=== PATIENT | male | born 1955 | race Caucasian/White ===

== ENCOUNTER 2021-01-11 12:52 | Inpatient (IN) | payer MEDICARE ==
[~2021-01-11] VITALS: Ht 167.6 cm; Wt 81.3 kg
[~2021-01-11 12:52] MED LIST: ASPI-482 PO; ATOR40TA PO; INSU100C4 SQ; INSU100V13 SQ; LISI40TA6 PO; METF1000 PO; RANI300T3 PO
--- NOTE | 2021-01-11 13:20 | PHYS DOC ---
Past History Past Medical History: Asthma, CAD, Diabetes, High Cholesterol, Hypertension, Other Additional Past Medical Histor: enlarged; kidney cancer prostate (NATASHA HARDIN APRN) Past Surgical History: Tonsillectomy, Other Additional Past Surgical Histo: partial kidney removal (NATASHA HARDIN APRN) Alcohol Use: None Drug Use: None (NATASHA HARDIN APRN) Adult General Chief Complaint Chief Complaint: ABDOMINAL PAIN HPI HPI Patient is a 65-year-old male presents emergency department complaining of 6 days of lower left and right abdominal pain with nausea vomiting and diarrhea. Patient reports fevers every day for the past 6 days at home stating his maximum fever was 99.0 oral temp. Patient also complains of low back pain. Patient reports his last diarrhea spell was 2 days ago, last vomiting spell was yesterday. Patient reports that he now feels weak. Patient states he was seen at urgent care yesterday and was sent home after their work-up to include a negative COVID-19 virus test and a negative rapid flu test. Patient reports he had his first COVID-19 virus vaccination 5 weeks ago, was denied his second vaccination related to this current illness. Patient states he has a surgical history of partial left kidney removal 2 years ago. States he has had no kidney problems since. Patient reports he is a type II diabetic, takes medications for hypertension and elevated cholesterol, takes a medication for enlarged prostate. Patient denies chest pain, chest congestion, headaches, neck pain, sore throat, nasal congestion or upper airway congestion. Patient denies rashes to the skin, denies swelling of his extremities, denies headaches, denies visual disturbances. Patient states he is not homicidal or suicidal. Patient denies anyone else in his home feeling the same way as he, patient denies recent travel. Patient denies contact with any known COVID-19 virus sources. (NATASHA HARDIN APRN) Review of Systems Review of Systems 14 body systems of review of systems have been reviewed. See HPI for pertinent positives and negative responses, otherwise all other systems are negative, nonpertinent or noncontributory. (NATASHA HARDIN APRN) Allergies Allergies Allergies Coded Allergies Type Severity Reaction Last Updated Verified Penicillins Allergy Unknown Anaphylaxis 01/11/21 Yes (NATASHA HARDIN APRN) Physical Exam Physical Exam Constitutional: Well developed, well nourished, mild distress, non-toxic appearance. 65-year-old male holding lower abdomen and writhing around in bed. HENT: Normocephalic, atraumatic, bilateral external ears normal, oropharynx moist, no oral exudates, nose normal. No lymphadenopathy of the head or neck appreciated, oropharynx moist, no infectious process appreciated, bilateral TMs within normal limits. Eyes: PERRLA, EOMI, conjunctiva normal, no discharge. Neck: Normal range of motion, no tenderness, supple, no stridor. No midline C- spine spinal tenderness, no nuchal rigidity, no meningismus signs. Cardiovascular:Heart rate regular rhythm, murmur appreciated per auscultation, patient states he has a history of a murmur. Lungs & Thorax: Bilateral breath sounds clear to auscultation all lung jerze. Abdomen: Bowel sounds normal, soft, no masses, no pulsatile masses. Tenderness to palpation left lower and right lower quadrants, no rebound tenderness, no McBurney's point tenderness, no Locke sign. No areas of ecchymosis appreciated. Skin: Warm, dry, no erythema, no rash. Back: No tenderness tenderness along midline spinal processes, no left or right CVA tenderness, lower left and right lumbar area pain to palpation. Extremities: No tenderness, no cyanosis, no clubbing, ROM intact, no edema. +2/4 pulses, distal cap refill less than 2 seconds. Neurologic: Alert and oriented X 3, normal motor function, normal sensory function, no focal deficits noted. Psychologic: Affect normal, judgement normal, mood normal. (NATASHA HARDIN APRN) Current Patient Data Vital Signs Vital Signs Date Time Temp Pulse Resp B/P (MAP) Pulse Ox O2 Delivery O2 Flow Rate FiO2 01/11/21 13:03 97.6 88 13 124/72 (89) 94 Room Air Lab Results Laboratory Tests Test 01/11/21 13:54 01/11/21 15:05 01/11/21 16:50 White Blood Count 23.9 x10^3/uL Red Blood Count 4.03 x10^6/uL Hemoglobin 12.0 g/dL Hematocrit 36.5 % Mean Corpuscular Volume 91 fL Mean Corpuscular Hemoglobin 30 pg Mean Corpuscular Hemoglobin Concent 33 g/dL Red Cell Distribution Width 14.1 % Platelet Count 375 x10^3/uL Neutrophils (%) (Auto) 89 % Lymphocytes (%) (Auto) 3 % Monocytes (%) (Auto) 7 % Eosinophils (%) (Auto) 0 % Basophils (%) (Auto) 1 % Neutrophils # (Auto) 21.2 x10^3uL Lymphocytes # (Auto) 0.8 x10^3/uL Monocytes # (Auto) 1.7 x10^3/uL Eosinophils # (Auto) 0.1 x10^3/uL Basophils # (Auto) 0.1 x10^3/uL Segmented Neutrophils % 81 % Band Neutrophils % 5 % Lymphocytes % 5 % Monocytes % 9 % Platelet Estimate Adequate Sodium Level 131 mmol/L Potassium Level 3.2 mmol/L Chloride Level 96 mmol/L Carbon Dioxide Level 26 mmol/L Anion Gap 9 Blood Urea Nitrogen 33 mg/dL Creatinine 1.4 mg/dL Estimated GFR (Cockcroft-Gault) 50.5 BUN/Creatinine Ratio 24 Glucose Level 185 mg/dL Calcium Level 8.6 mg/dL Total Bilirubin 0.5 mg/dL Aspartate Amino Transf (AST/SGOT) 36 U/L Alanine Aminotransferase (ALT/SGPT) 44 U/L Alkaline Phosphatase 104 U/L Total Protein 6.5 g/dL Albumin 3.7 g/dL Albumin/Globulin Ratio 1.3 Lactic Acid Level 1.9 mmol/L Urine Collection Type Void Urine Color Yellow Urine Clarity Hazy Urine pH 5.5 Urine Specific [place] 1.015 Urine Protein 100 mg/dl Urine Glucose (UA) Neg mg/dL Urine Ketones (Stick) Neg mg/dL Urine Blood Small Urine Nitrite Neg Urine Bilirubin Neg Urine Urobilinogen Dipstick 0.2 mg/dL Urine Leukocyte Esterase Small Urine RBC 1-2 /HPF Urine WBC >40 /HPF Urine Squamous Epithelial Cells Occ /LPF Urine Bacteria Mod /HPF Current Medications Medications (Trade) Dose Ordered Sig/Ayala Route PRN Reason Start Time Stop Time Status Last Admin Dose Admin Sodium Chloride 1,000 ml @ 1,000 mls/hr 1X ONCE IV 01/11/21 13:30 01/11/21 14:29 DC 01/11/21 14:06 Sodium Chloride 1,000 ml @ 1,000 mls/hr 1X ONCE IV 01/11/21 14:45 01/11/21 15:44 DC 01/11/21 14:53 Ondansetron HCl (Zofran) 4 mg 1X ONCE IVP 01/11/21 14:45 01/11/21 14:51 DC 01/11/21 14:52 Potassium Chloride (Klor-Con) 40 meq 1X ONCE PO 01/11/21 14:45 01/11/21 14:51 DC 01/11/21 14:53 Iohexol (Omnipaque 300 Mg/ml) 75 ml 1X ONCE IV 01/11/21 15:00 01/11/21 15:01 DC Info (Do NOT chart on this entry -- for MONITORING) 1 each PRN DAILY PRN MC SEE COMMENTS 01/11/21 15:00 01/13/21 14:59 Fentanyl Citrate (Fentanyl 2ml Vial) 75 mcg 1X ONCE IVP 01/11/21 16:30 01/11/21 16:37 DC 01/11/21 16:36 Sodium Chloride 1,000 ml @ 125 mls/hr 1X ONCE IV 01/11/21 17:15 01/12/21 01:14 UNV Levofloxacin/ Dextrose (Levaquin Per Pharmacy) 1 each PRN DAILY PRN MC SEE COMMENTS 01/11/21 17:15 UNV Metronidazole 100 ml @ 100 mls/hr 1X ONCE IV 01/11/21 17:15 01/11/21 18:14 UNV Ondansetron HCl (Zofran) 4 mg PRN Q4HRS PRN IVP NAUSEA/VOMITING 01/11/21 17:15 01/12/21 17:14 UNV (NATASHA HARDIN APRN) EKG EKG []PATIENT: BINH ONEIL AACCOUNT: [id number]#: [id number] : 1955 LOCATION: ER AGE: 65 SEX: M EXAM STATUS: REG ER ORD. PHYSICIAN: NATASHA HARDIN APRN REASON: ABDOMEN PAIN PROCEDURE: CT ABDOMEN PELVIS WO CONTRAST Exam: CT of abdomen and pelvis without contrast INDICATION: Abdominal pain TECHNIQUE: Sequential axial images through the abdomen and pelvis obtained without IV contrast. Sagittal and coronal reformatted images were reconstructed from the axial data and reviewed. Comparisons: None FINDINGS: Heart size is normal. No pericardial effusion. There is linear bandlike opacities noted at the lung bases. No pleural effusion. Evaluation of solid organs limited secondary to noncontrast technique. Liver, spleen, gallbladder and adrenals are unremarkable. There is diffuse inflammatory changes surrounding the pancreas no focal fluid collection is identified. Somewhat hyperdense ascites is noted surrounding the pancreas. No perinephric inflammation or hydronephrosis. There is postoperative changes at the upper pole of the left kidney with some adjacent thickening. Bladder is partially distended and not well evaluated. Prostate is not enlarged. Large and small bowel are unremarkable. Appendix is normal. No free intra- abdominal air or fluid. No obstruction. Abdominal aorta has a normal course and caliber. No enlarged intra-abdominal lymph nodes are identified. No suspicious osseous lesions or acute fractures. IMPRESSION: 1. Extensive inflammatory changes surrounding the pancreas favored represent pancreatitis. There is some hyperdense surrounding ascites which may relate to hemorrhagic products. Hemorrhagic pancreatitis is possible. 2. Postoperative changes of partial nephrectomy at the upper pole of the left kidney with questionable nodular thickening adjacent to the suture. Renal protocol CT is recommended to better assess. Exposure: One or more of the following in the visualized dose reduction techniques were utilized for this examination: 1. Automated exposure control 2. Adjustment of the MA and/or KV according to patient size 3. Use of iterative of reconstructive technique Electronically signed by: Ester Dhillon MD (01/11/2021 4:09 PM) [facility] (NATASHA HARDIN APRN) Radiology/Procedures Radiology/Procedures [] (NATASHA HARDIN APRN) Heart Score C/O Chest Pain: No Risk Factors: Risk Factors: DM, Current or recent (<one month) smoker, HTN, HLP, family history of CAD, obesity. Risk Scores: Risk Factors: DM, Current or recent (<one month) smoker, HTN, HLP, family history of CAD, obesity. (NATASHA HARDIN APRN) Course & Med Decision Making Course & Med Decision Making Pertinent Labs and Imaging studies reviewed. (See chart for details) 65-year-old male, vital signs reviewed, presents to the emergency department concern of abdominal pain for the past 6 days. Patient's physical examination concerning for possible acute surgical abdomen versus diverticulitis. ED work- up was initiated. Patient's labs concerning with leukocytosis, WBC equals 23,900. Patient's lactic acid was unremarkable. Due to patient's poor vascular access, a CT abdomen pelvis with IV contrast was not performed, and lieu of this a CT abdomen pelvis without contrast was performed in the ED today. CT abdomen pelvis read by house radiologist interpretation concerning for pancreatitis. Patient did not present with upper quadrant abdominal pain, a lipase was ordered at this time. Called and discussed patient case with inpatient physician Dr. Bowles who agreed to admit patient to the medical surgical unit at [facility] with a diagnosis of abdominal pain, leukocytosis, abnormal abdominal CT with the information he received from md. Dr. Bowles recommended patient be started on Zosyn IV, and normal saline IV at the rate of 125/h. Dr. Bowles has assumed patient care at this time. Reviewed patient's allergies, patient does have allergy to penicillin, discussed with [facility] pharmacist, was recommended to start on IV Flagyl and IV Levaquin and lieu of Zosyn IV (NATASHA HARDIN APRN) Course & Med Decision Making I oversaw care of patient and reviewed case with OIL AGENT at length. I personally saw and evaluated patient complaing of diffuse abdominal pain without surgical abdomen findings. I stressed need for admission with OIL AGENT and advised he discuss case with hospitalist to review need for [facility] admission. I agree with note and plan of care as stated. Electronically signed, David Anna DO This patient required critical care. Due to the fact that the patient required a significant amount of one on one physician patient contact time, ordering and review of studies, arranging urgent treatment with development of a management plan, evaluation of patients response to treatment with frequent reassessments, and discussions with other providers this patient required critical care time of 32 mins Critical care time was indicated due to the inherent instability and/or potential for instability in this patient. The critical care time that is allocated to this patient is above and beyond any time spent on any other billable procedures performed on this patient. (DAVID ANNA DO) Dragon Disclaimer Dragon Disclaimer This electronic medical record was generated, in whole or in part, using a voice recognition dictation system. (NATASHA HARDIN APRN) Departure Departure: Impression: Primary Impression: Abdominal pain Additional Impressions: Abnormal abdominal CT scan Leukocytosis Disposition: 09 ADMITTED INPT THIS HOSP (Admit to Dr. Bowles to [facility] unit diagnosis abdominal pain, abnormal abdominal CT, leukocytosis) Admitting Physician: Eliu Bowles (NATASHA HARDIN APRN) Condition: STABLE Referrals: RUSS SMILEY MD (PCP) Problem Qualifiers Primary Impression: Abdominal pain Abdominal location: unspecified location Qualified Codes: R10.9 - Unspecified abdominal pain Additional Impressions: Leukocytosis Leukocytosis type: unspecified Qualified Codes: D72.829 - Elevated white blood cell count, unspecified NATASHA HARDIN APRN Jan 11, 2021 13:20 DAVID ANNA DO Jan 11, 2021 23:00
[2021-01-11] MEDS ORDERED: IV NORMAL SALINE 1,000ML 1,000 ML IV ONE ×3 (13:30→17:15)
[2021-01-11 14:18] LABS: BASO # 0.1 x10^3/uL (0.0-0.2); BASO % 1 % (0-3); EOS # 0.1 x10^3/uL (0.0-0.7); EOS % 0 % (0-3); HEMATOCRIT 36.5 % (39.0-53.0); LYMPH # 0.8 x10^3/uL (1.0-4.8); LYMPH % 3 % (24-48); MEAN CORPUSCULAR HEMOGLOBIN 30 pg (25-35); MEAN CORPUSCULAR HGB CONC 33 g/dL (31-37); MEAN CORPUSCULAR VOLUME 91 fL (79-100); MONO # 1.7 x10^3/uL (0.0-1.1); MONO % 7 % (0-9); NEUT # 21.2 x10^3uL (1.8-7.7); NEUT % 89 % (31-73); PLATELET COUNT 375 x10^3/uL (140-400); RED BLOOD COUNT 4.03 x10^6/uL (4.30-5.70); RED CELL DISTRIBUTION WIDTH 14.1 % (11.5-14.5); WHITE BLOOD COUNT 23.9 x10^3/uL (4.0-11.0)
[2021-01-11 14:31] LABS: CALCIUM 8.6 mg/dL (8.5-10.1); CREATININE 1.4 mg/dL (0.7-1.3); GFR 50.5; POTASSIUM 3.2 mmol/L (3.5-5.1)
[2021-01-11] MEDS ORDERED: ONDANSETRON PF 4 MG/2 ML VIAL. IVP ONE (14:45)
[2021-01-11] MEDS ORDERED: POTASSIUM CHLORIDE 20 MEQ TABLET.ER. PO ONE (14:45)
[2021-01-11] MEDS ORDERED: IOHEXOL 300 MG/ML 75 ML VIAL. IV ONE (15:00)
[2021-01-11] MEDS ORDERED: CONTRAST GIVEN. MC PRN (15:00)
[2021-01-11 15:11] LABS: % BANDS 5 % (0-9); % LYMPHS 5 % (24-48); % MONOS 9 % (0-10); % SEGS 81 % (35-66); PLT ESTIMATE ADEQUATE (ADEQUATE)
[2021-01-11 15:12] LABS: TOTAL BILIRUBIN 0.5 mg/dL (0.2-1.0); TOTAL PROTEIN 6.5 g/dL (6.4-8.2)
[2021-01-11 15:31] LABS: ALBUMIN 3.7 g/dL (3.4-5.0); ALBUMIN/GLOBULIN RATIO 1.3 (1.0-1.7)
--- NOTE | 2021-01-11 16:11 | RAD ---
Exam: CT of abdomen and pelvis without contrast INDICATION: Abdominal pain TECHNIQUE: Sequential axial images through the abdomen and pelvis obtained without IV contrast. Sagit dinesh and coronal reformatted images were reconstructed from the axial data and reviewed. Comparisons: None FINDINGS: Heart size is normal. No pericardial effusion. There is linear bandlike opacities noted at the lung b ases. No pleural effusion. Evaluation of solid organs limited secondary to noncontrast technique. Liver, spleen, gallbladder and adrenals are unremarkable. There is diffuse inflammatory changes surrounding the pancreas no focal fluid collection is identifie d. Somewhat hyperdense ascites is noted surrounding the pancreas. No perinephric inflammation or hydronephrosis. There is postoperative changes at the upper pole of th e left kidney with some adjacent thickening. Bladder is partially distended and not well evaluated. Prostate is not enlarged. Large and small bowel are unremarkable. Appendix is normal. No free intra-abdominal air or fluid. No obstruction. Abdominal aorta has a normal course and caliber. No enlarged intra-abdominal lymph nodes are identified. No suspicious osseous lesions or acute fractures. IMPRESSION: 1. Extensive inflammatory changes surrounding the pancreas favored represent pancreatitis. There is some hyperdense surrounding ascites which may relate to hemorrhagic products. Hemorrhagic pancreatiti s is possible. 2. Postoperative changes of partial nephrectomy at the upper pole of the left kidney with questionab le nodular thickening adjacent to the suture. Renal protocol CT is recommended to better assess. Exposure: One or more of the following in the visualized dose reduction techniques were utilized for this examination: 1. Automated exposure control 2. Adjustment of the MA and/or KV according to patient size 3. Use of iterative of reconstructive technique Electronically signed by: Ester Dhillon MD (01/11/2021 4:09 PM) [facility]
[2021-01-11 17:06] LABS: BILIRUBIN,URINE NEG (NEG); CLARITY,URINE HAZY; COLOR,URINE YELLOW; GLUCOSE,URINE NEG (NEG); NITRITE,URINE NEG (NEG); UROBILINOGEN,URINE 0.2 mg/dL (0.2 mg/dL)
[2021-01-11 17:08] LABS: BACTERIA,URINE MOD /HPF (0-FEW); SQUAMOUS EPITHELIAL CELL,UR OCC /LPF; WBC,URINE >40 /HPF (0-4)
[2021-01-11] MEDS ORDERED: ONDANSETRON PF 4 MG/2 ML VIAL. IVP PRN (17:15)
[2021-01-11] MEDS ORDERED: levoFLOXacin PER PHARMACY 1 EACH. MC PRN (17:15)
[2021-01-11 19:30] VITALS: BP 159/82
--- NOTE | 2021-01-11 19:30 | NUR ---
ADMISSION: The patient, BINH ONEIL, 65 y/o, M admitted by SHARI WOODSON MD, was given written information regarding hospital policies, unit procedures and contact persons. Pt arrived to room 117 via gurney, accompanied by [facility] and ED staff. Pt here for c/o lower abdominal pain x1 week, along with N/V/D over the past couple days. Pt reports he was seen at urgent care last , was swabbed for COVID-19 and Flu A/B. All came back negative. Pt reports he was sent home with Miguel A, but has not improved. Pt received the first dose of Moderna COVID vaccine approx. 4 weeks ago, but was unable to receive his 2nd dose due to his current illness. Pt NPO. IV fluids infusing per order. PMH reviewed with pt. Pt unsure of home meds, reviewed with pt's Sandra over the phone. Discussed POC with pt and , V/U. SCD's for VTE. Pt UTD on flu vaccine. Call light in reach. Valuables were checked and logged. Left in room with pt.
[2021-01-11] MEDS ORDERED: METO50TA29 PO (20:11)
[2021-01-11] MEDS ORDERED: METF10007 PO (20:11)
[2021-01-11] MEDS ORDERED: TAMS0.4C97 PO (20:11)
[2021-01-11] MEDS ORDERED: FAMO20TA5 PO (20:11)
[2021-01-11] MEDS: IV NORMAL SALINE 1,000ML 1,000 ML IV SCH (21:45)
[2021-01-11 23:18] VITALS: BP 154/74
[2021-01-12] MEDS: IV NORMAL SALINE 1,000ML 1,000 ML IV SCH ×2 (03:52→13:45)
[2021-01-12 05:21] VITALS: BP 158/73
[2021-01-12] MEDS ORDERED: LACTOBACILLUS RHAMNOSUS GG 1 CAPSULE. PO SCH (09:00)
[2021-01-12 09:14] LABS: BASO # 0.1 x10^3/uL (0.0-0.2); BASO % 0 % (0-3); EOS % 0 % (0-3); HEMATOCRIT 34.6 % (39.0-53.0); HEMOGLOBIN 11.2 g/dL (13.0-17.5); LYMPH # 0.8 x10^3/uL (1.0-4.8); LYMPH % 3 % (24-48); MEAN CORPUSCULAR HEMOGLOBIN 29 pg (25-35); MEAN CORPUSCULAR HGB CONC 33 g/dL (31-37); MEAN CORPUSCULAR VOLUME 91 fL (79-100); MONO # 1.8 x10^3/uL (0.0-1.1); MONO % 8 % (0-9); NEUT # 21.5 x10^3uL (1.8-7.7); NEUT % 89 % (31-73); PLATELET COUNT 382 x10^3/uL (140-400); RED BLOOD COUNT 3.81 x10^6/uL (4.30-5.70); RED CELL DISTRIBUTION WIDTH 14.4 % (11.5-14.5); WHITE BLOOD COUNT 24.2 x10^3/uL (4.0-11.0)
[2021-01-12 09:25] LABS: ALBUMIN 1.6 g/dL (3.4-5.0); ALBUMIN/GLOBULIN RATIO 0.4 (1.0-1.7); CREATININE 1.1 mg/dL (0.7-1.3); GFR 66.8; POTASSIUM 3.9 mmol/L (3.5-5.1); TOTAL BILIRUBIN 0.5 mg/dL (0.2-1.0); TOTAL PROTEIN 5.5 g/dL (6.4-8.2)
[2021-01-12 11:26] VITALS: BP 169/78
[2021-01-12 15:25] VITALS: BP 158/76
[2021-01-12] MEDS ORDERED: metFORMIN 500 MG TABLET PO SCH (17:30)
--- NOTE | 2021-01-12 17:37 | SSS ---
ADMIT DATE: HISTORY OF PRESENT ILLNESS: The patient is a 65-year-old male patient who presented to the Emergency Room with a complaint of pain that started about roughly 9 days ago, specifically Monday with abdominal pain that was mostly diffuse, radiating, going through and through to the back, associated with nausea, vomiting, fever, and diarrhea. He has also complained of generalized weakness, symptoms continued on . He was checked for COVID and was negative and he got her first COVID test on 12/08/2020 and was planning to get his second COVID test, but he has not because of his symptoms. He was evaluated in the Emergency Room and had lab work and imaging studies. His lab work showed that he has marked leukocytosis with a white cell count of 23,900. His chemistry showed that he is dehydrated, has hypokalemia and elevated blood sugar and her urinalysis was apart from glycosuria also showed that he has also leukocyturia with more than 40 wbc's and moderate amount of bacteria. His CT scan of the abdomen and pelvis showed the patient has extensive inflammatory changes surrounding the pancreas favoring representing pancreatitis. There is some hyperdense surrounding ascites, which may relate to hemorrhagic product, hemorrhagic pancreatitis possible. Has also postoperative changes of partial nephrectomy at the upper pole of the left kidney with questionable nodular thickening adjacent to the suture. Renal protocol CT is recommended for better evaluation. The liver, spleen, gallbladder, and adrenals are unremarkable. No perinephric inflammation or hydronephrosis. There is postoperative changes in the upper pole of the left kidney with some adjacent thickening. The bladder is partially distended, but not well evaluated. Prostate is not enlarged. Large and small bowel is unremarkable. Appendix is normal. No free intraabdominal air or fluid, no obstruction. The abdominal aorta has a normal course and caliber. No enlarged intraabdominal lymph nodes identified. No suspicious osseous lesions or acute fracture. The patient was admitted with hemorrhagic pancreatitis, questionable UTI and was started on IV fluid. He was kept n.p.o. because of severe pain, although his serum lipase was normal. He was started on levofloxacin as well as Flagyl together with pain management. PAST MEDICAL HISTORY: Significant for similar episode in 2009; at that time, he was admitted to [facility] and although he was not clear about what diagnosis was given, but it transpired after that he is diabetic according to him. Other medical problems include hypertension, hyperlipidemia, type 2 diabetes, benign prostatic hypertrophy, chronic obstructive pulmonary disease, generalized osteoarthritis, has also left kidney cancer, status post partial nephrectomy in 02/24/2018. PAST SURGICAL HISTORY: Significant for partial nephrectomy surgery on the right hand and a colonoscopy done on 06/2019. ALLERGIES: HE IS ALLERGIC TO PENICILLIN. MEDICATIONS: He is currently on following medications: He is on tamsulosin 0.4 mg capsules at bedtime, atorvastatin calcium 40 mg at bedtime, metoprolol succinate 50 mg daily, lisinopril 40 mg once a day, aspirin 81 mg once a day, famotidine 20 mg at bedtime, metformin 1000 mg twice a day, NovoLog as per insulin sliding scale before meals as well as detemir insulin 50-55 units at bedtime. FAMILY HISTORY: He has one sister, at the age of 56 because of breast cancer. His father at age of 59 as a complication of COPD and emphysema. Mother is still alive at age of 91. SOCIAL HISTORY: He is , has 1 son and 1 daughter from previous marriage. He has 1 daughter from his current and a stepdaughter. He quit smoking in 2011. He drinks beer once in 2-3 weeks. He is retired from the [employer]. REVIEW OF SYSTEMS: As per history of present illness. PHYSICAL EXAMINATION: GENERAL: On arrival to the Emergency Room, the patient looked somewhat pale, no jaundice, cyanosis or thyromegaly. No jugular venous distension. No limb edema. VITAL SIGNS: His heart rate was 90, blood pressure was 146/71, temperature was 97.6, respiratory rate was 24, and oxygen saturation was 91% on room air. HEAD, EYES, EARS, NOSE AND THROAT: Showed normocephalic, atraumatic. NECK: Supple. HEART: Showed normal first and second heart sounds. No gallop or murmur. CHEST: Shows central trachea, equal bilateral chest expansion, air entry, vesicular sounds. No crepitation or rhonchi. ABDOMEN: Distended and diffusely tender mostly in the epigastric and right upper quadrant and there is no guarding or rigidity. No organomegaly. All hernial orifice intact. Bowel sounds normal. NEUROLOGIC: He was awake, alert, responding appropriately. All cranial nerves intact. EXTREMITIES: He moves extremities without difficulty. LABORATORY DATA: His lab work on arrival showed a white cell count of 23,900, hemoglobin 12, hematocrit 36, MCV 91, and platelet count 375,000 with a manual differential showed 89% polymorphs, 3% lymphocytes, 7% monocytes. His chemistry showed a serum sodium 131, potassium 3.2, chloride 96, bicarbonate 26, anion gap of 9, BUN 33, creatinine 1.4, estimated GFR was 50 mL per minute, his glucose 185, calcium was 8.6. Total bilirubin, AST, ALT, alkaline phosphatase were normal. Total protein 6.5, albumin was 3.7. Urinalysis showed the urine was yellow, hazy with a pH of 5.5, specific gravity of 1.015, there was large amount of protein. The urine was negative for glucose, ketones. There was small amount of blood, negative for nitrite, small amount of leukocyte esterase, 1-2 rbc's, more than 40 wbc's, and moderate amount of bacteria. IMAGING DATA: His CT scan of the abdomen and pelvis showed again that the heart size is normal, no pericardial effusion. There is linear band-like opacities noted in the lung bases. No pleural effusion. Evaluation of the solid organs is limited secondary to noncontrast technique. The liver, spleen, gallbladder, and adrenals are unremarkable. There is diffuse inflammatory changes surrounding the pancreas with no focal fluid collection identified, somewhat hyperdense ascites is noted surrounding the pancreas and no perinephric inflammation or hydronephrosis. There are postoperative changes at the upper pole of the left kidney with some adjacent thickening. The bladder is partially distended, not well evaluated. Prostate is not enlarged. Large and small bowel are unremarkable. Appendix is normal. No free intraabdominal air or fluid, no obstruction. Abdominal aorta has a normal course and caliber. No enlarged intraabdominal lymph nodes are identified. No suspicious osseous lesions or acute fractures. ASSESSMENT AND PLAN: The patient was admitted and unfortunately continued to have severe pain and given the finding and basically normal serum lipase, I transferred the patient to [facility] to consult the Gastroenterology team. I am concerned that the fact that he has partial nephrectomy might be relevant and might have metastases to the peritoneal cavity. When I saw him this afternoon, he again continued to have severe pain and although his lab work remained stable and in fact lipase was less at 179 and therefore, the patient was transferred to [facility], was kept n.p.o., continued the D5W with half normal saline. We will repeat all his lab work, we have consulted the bilingual operator to assist with evaluation of this abnormal finding in the pancreas and the ascitic fluid that is hyperdense. SHARI WOODSON MD DR: JEANETTE/monisha JOB#: [id number] / [id number]
--- NOTE | 2021-01-12 18:52 | NUR ---
Pt to be transferred to [facility] via EMS. Report given to LEONILA Vogel on MS room 430. Pt updated on situation and transfer and verbalized understanding. EMS to merchandise pickup/receiving associate pt soon. Update given to oncoming nurse Lelo. All questions addressed. PETRONA RN
--- NOTE | 2021-01-12 19:23 | NUR ---
[facility] here to transport pt to [facility]. DC packet and all belongings given to transfer team. Pt transferred self from bed to [facility] independently. Pt c/o increased lower abdominal pain with movement, rated 5/10. PRN fentanyl given via left upper arm PICC line, prior to DC per pt request. Pt wheeled off unit accompanied by EMS personnel. Called accepting unit to update on pt departure.
[2021-01-12 19:24] VITALS: BP 151/108
[2021-01-12] MEDS ORDERED: TAMSULOSIN 0.4 MG CAP.ER.24H. PO SCH (21:00)
[2021-01-12] MEDS ORDERED: FAMOTIDINE 20 MG TABLET PO SCH (21:00)
[2021-01-12] MEDS ORDERED: ATORVASTATIN CALCIUM 20 MG TABLET PO SCH (21:00)
[2021-01-13] MEDS ORDERED: METOPROLOL SUCC 24HR ER 50 MG TAB.ER.24H. PO SCH (09:00)
[2021-01-13] MEDS ORDERED: ASPIRIN ENTERIC COATED 81 MG TABLET.DR. PO SCH (09:00)
[2021-01-13] MEDS ORDERED: LISINOPRIL 20 MG TABLET PO SCH (09:00)
== END 2021-01-12 19:23 | disposition short-term general hospital (02) | DRG 438 ==
LOC: ER 12:52 → 1 SOUTH 16:45
PROVIDERS: ADMIT Internal Medicine; ATTEND Internal Medicine
DX: K85.90 Acute pancreatitis without necrosis or infection, unspecified (principal); N17.0 Acute kidney failure with tubular necrosis; R18.8 Other ascites; C78.6 Secondary malignant neoplasm of retroperitoneum and peritoneum; E86.0 Dehydration; E87.6 Hypokalemia; I10 Essential (primary) hypertension; N40.0 Benign prostatic hyperplasia without lower urinary tract symptoms; E11.65 Type 2 diabetes mellitus with hyperglycemia; E78.5 Hyperlipidemia, unspecified; K86.89 Other specified diseases of pancreas; E78.00 Pure hypercholesterolemia, unspecified; I25.10 Atherosclerotic heart disease of native coronary artery without angina pectoris; M15.9 Polyosteoarthritis, unspecified; Z85.528 Personal history of other malignant neoplasm of kidney; Z88.0 Allergy status to penicillin; Z90.5 Acquired absence of kidney; Z87.891 Personal history of nicotine dependence; Z80.3 Family history of malignant neoplasm of breast; Z82.5 Family history of asthma and other chronic lower respiratory diseases
CPT/HCPCS: 36415; 74176; 80053; 81001; 82947; 83605; 83690; 85007; 85025; 87040; 87077; 87086; 87186; 96361; 96365; 96368; 96375; J1956; J2405; J3010; J3490; 99285-25; J7030